=== PATIENT | female | born 1990 | race Two or more races ===

== ENCOUNTER 2025-02-15 15:42 | Emergency (ER) | payer OTHER ==
[~2025-02-15] VITALS: Ht 165.1 cm; Wt 80.0 kg
[2025-02-15 16:00] VITALS: O2SAT 100
[2025-02-15] MEDS: PROPRANOLOL HCL 10MG TABLET PO ONE (17:30)
[2025-02-15 17:44] LABS: BASOPHILS % 1.0 % (0.0-2.0); EOSINOPHILS % 1.1 % (0.0-5.0); HEMATOCRIT. 36.1 % (36.0-48.0); HEMOGLOBIN. 12.3 g/dL (12.0-16.0); LYMPHOCYTES % 19.7 % (20.0-50.0); MEAN PLATELET VOLUME 8.3 fl (7.4-10.4); MONOCYTES % 10.1 % (2.0-8.0); NEUTROPHILS % 68.1 % (40.0-76.0); PLATELET 235 x1000/uL (130-400); RED BLOOD CELL COUNT 4.24 mill/uL (4.2-5.4); RED CELL DISTRIBUTION WIDTH 14.5 % (11.6-14.6)
[2025-02-15 17:55] LABS: CREATININE 0.8 mg/dL (0.6-1.0); UREA NITROGEN BLOOD 10 mg/dL (9-23)
[2025-02-15 18:32] LABS: ASPARTATE AMINOTRANSFERASE 18 IU/L (<34)
[2025-02-15 18:33] LABS: BILIRUBIN DIRECT 0.1 mg/dL (<=3.0); BILIRUBIN TOTAL 0.5 mg/dL (0.1-1.0); PROTEIN TOTAL 6.4 g/dL (6.0-8.3)
[2025-02-15 18:35] LABS: T4 FREE 1.04 ng/dL (0.89-1.76)
[2025-02-15 18:39] LABS: B-HCG QUANTITATIVE < 1 mIU/mL (<6)
[2025-02-15] MEDS ORDERED: PROP10TA10 MT (19:20)
[2025-02-15 19:42] LABS: TROPONIN I HIGH SENSITIVITY < 4 ng/L (3.0-34)
[2025-02-15 19:50] VITALS: BP 150/84; PULSE 59; RESP 16; TEMP 36.9; O2SAT 100
== END 2025-02-15 19:56 | disposition home or self-care (01) ==
LOC: ER 15:42
DX: R00.2 Palpitations (principal); R07.9 Chest pain, unspecified; R06.02 Shortness of breath; R51.9 Headache, unspecified; I10 Essential (primary) hypertension; R10.20 Pelvic and perineal pain unspecified side
CPT/HCPCS: 36415; 71045; 80048; 80076; 81025; 83735; 83880; 84439; 84443; 84484; 84702; 85025; 93005; 99285

== ENCOUNTER 2025-03-02 19:03 | Emergency (ER) | payer OTHER ==
[~2025-03-02] VITALS: Ht 167.6 cm; Wt 82.0 kg
[~2025-03-02 19:03] MED LIST: PROP10TA10 MT
[2025-03-02 19:14] VITALS: TEMP 36.8; O2SAT 100
[2025-03-02 20:20] LABS: BASOPHILS % 0.9 % (0.0-2.0); EOSINOPHILS % 1.4 % (0.0-5.0); HEMATOCRIT. 39.8 % (36.0-48.0); HEMOGLOBIN. 13.2 g/dL (12.0-16.0); LYMPHOCYTES % 20.9 % (20.0-50.0); MEAN PLATELET VOLUME 8.7 fl (7.4-10.4); MONOCYTES % 7.9 % (2.0-8.0); NEUTROPHILS % 68.9 % (40.0-76.0); PLATELET 238 x1000/uL (130-400); RED BLOOD CELL COUNT 4.68 mill/uL (4.2-5.4); RED CELL DISTRIBUTION WIDTH 14.2 % (11.6-14.6)
[2025-03-02 20:30] LABS: CREATININE 0.7 mg/dL (0.6-1.0); UREA NITROGEN BLOOD 8 mg/dL (9-23)
[2025-03-02 21:25] LABS: HCG SCREEN NEGATIVE
[2025-03-02 21:50] LABS: ASPARTATE AMINOTRANSFERASE 17 IU/L (<34); BILIRUBIN DIRECT 0.1 mg/dL (<=3.0)
[2025-03-02 21:51] LABS: BILIRUBIN TOTAL 0.5 mg/dL (0.1-1.0); PROTEIN TOTAL 6.7 g/dL (6.0-8.3)
[2025-03-02 22:51] VITALS: BP 143/81; PULSE 78; RESP 18; O2SAT 100
== END 2025-03-02 22:54 | disposition home or self-care (01) ==
LOC: ER 19:03
DX: I10 Essential (primary) hypertension (principal); R00.2 Palpitations; F41.9 Anxiety disorder, unspecified; Z98.890 Other specified postprocedural states
CPT/HCPCS: 36415; 71045; 80048; 80076; 83735; 84703; 85025; 93005; 99285